=== PATIENT | male | born 1965 | race African-American/Black ===

== ENCOUNTER 2024-10-01 01:31 | Day surgery (SDC) | payer OTHER, SELFPAY ==
[2024-09-30 13:44] VITALS: BMI 29.6
[2024-10-01 10:04] VITALS: BP 151/92; PULSE 75; RESP 18; TEMP 36.5; O2SAT 100
[2024-10-01 10:16] LABS: Glucose Point of Care 58 mg/dl (65-105)
[2024-10-01] MEDS: DEXTROSE 50% 25 GM/50 ML SYRINGE IV PUSH (10:24)
--- NOTE | 2024-10-01 10:40 | P.PNAN_ITS ---
Anes - Initial Pre Proc Eval Procedure: Operation Date: 10/01/24 09:00 Proposed Procedures p Colonoscopy - Frederick Galdamez MD Date/Time: 10/01/24 10:40 Surgeon: Frederick Galdamez MD Pre Op Diagnosis: fecal abnormalities Patient Data Age: 59 Gender: M Height: 1.75 m Weight: 91 kg Last Vital Signs Temp 36.5 C 10/01/24 10:04 Pulse 75 10/01/24 10:04 Resp 18 10/01/24 10:04 BP 151/92 H 10/01/24 10:04 Pulse Ox 100 10/01/24 10:04 O2 Del Method Room Air 10/01/24 10:04 Allergies Allergy/AdvReac Type Severity Reaction Status Date / Time No Known Allergies Allergy Verified 10/01/24 09:50 Home Medications ?Medication ?Instructions ?Recorded ?Confirmed ?Type NPH INSULIN 26 unit subcut QPM 09/30/24 10/01/24 History aspirin 81 mg tablet,delayed 81 mg PO DAILY 09/30/24 10/01/24 History release (Adult Aspirin Regimen) chlorpheniramine maleate 4 mg 4 mg PO .COMPLEX PRN allergy 09/30/24 10/01/24 History tablet (Allergy (chlorpheniramine)) symptoms chlorthalidone 25 mg tablet 25 mg PO DAILY 09/30/24 10/01/24 History duloxetine 60 mg capsule,delayed 60 mg PO DAILY 09/30/24 10/01/24 History release glipizide 5 mg tablet 2.5 mg PO DAILY 09/30/24 10/01/24 History hydrocortisone 0.5 % topical 1 applic topical DAILY PRN itching 09/30/24 10/01/24 History ointment ibuprofen 600 mg tablet 600 mg PO BID PRN fever or pain 09/30/24 10/01/24 History insulin NPH 24 unit subcut QAM 09/30/24 10/01/24 History insulin regular human 100 unit/mL 4 unit subcut QAM 09/30/24 10/01/24 History (3 mL) subcutaneous pen lisinopril 40 mg tablet 40 mg PO DAILY 09/30/24 10/01/24 History metformin 1,000 mg tablet 1,000 mg PO BID 09/30/24 10/01/24 History naproxen 500 mg tablet 500 mg PO BID PRN pain 09/30/24 10/01/24 History psyllium 1 tbsp PO DAILY 09/30/24 10/01/24 History rosuvastatin 20 mg tablet 40 mg PO DAILY 09/30/24 10/01/24 History semaglutide 0.25 mg or 0.5 mg (2 0.5 mg subcut WEEKLY 09/30/24 09/30/24 History mg/3 mL) subcutaneous pen injector simethicone 80 mg chewable tablet 80 mg PO DAILY PRN abdominal 09/30/24 09/30/24 History (Gas Relief (simethicone)) distention tolnaftate 1 % topical cream 1 applic topical .COMPLEX 09/30/24 09/30/24 History (Antifungal (tolnaftate)) Laboratory Tests 10/01/24 10:13 POC Capillary Glucose 58 L* mg/dl (65-105) Patient hx anesthesia problems: none Family hx anesthesia problems: none Results Review: All pre-operative results and documents have been reviewed as part of the pre- operative evaluation. FOR[facility]LY [facility], [facility] Social History Social History Living arrangements: incarcerated Anes - Eval Final PreProcedure Day of Procedure 10/01/24 10:40 Patient weight: overweight Heart: regular rate and rhythm Lungs: clear to auscultation Airway: Mallampati scale class II Neurological: alert and oriented Last oral intake: >/= 8 hours ASA classification: III Emergent: no Anesthetic plan: proceed Anesthesia type and monitoring: general GIVS and standard monitoring Results Review: All pre-operative results and documents have been reviewed as part of the pre- operative evaluation. Informed Consent: The patient's anesthetic plan and its attendant risks and benefits were discussed with the patient/family/POA. Questions were solicited and answers provided to the satisfaction of the patient/family/POA.
--- NOTE | 2024-10-01 10:42 | PM.HPGS ---
History of Present Illness History of Present Illness Consent: Risks, benefits, and alternatives have been discussed and questions answered. Patient agrees to proceed with procedure. Chief complaint: fecal abnormalities Narrative: Eulalio Lucero is a 59 year old male here for first colonoscopy, + FIT (he is an inmate) Review of Systems Review of Systems: All systems reviewed & are unremarkable except as noted in HPI and below PMFSH Past Medical History Medical History (Updated 10/01/24 @ 10:43 by Frederick Galdamez MD) Positive FIT (fecal immunochemical test) Social History Social History Living arrangements: incarcerated Meds Home Medications and Allergies Home Medications ?Medication ?Instructions ?Recorded ?Confirmed ?Type NPH INSULIN 26 unit subcut QPM 09/30/24 10/01/24 History aspirin 81 mg tablet,delayed 81 mg PO DAILY 09/30/24 10/01/24 History release (Adult Aspirin Regimen) chlorpheniramine maleate 4 mg 4 mg PO .COMPLEX PRN allergy 09/30/24 10/01/24 History tablet (Allergy (chlorpheniramine)) symptoms chlorthalidone 25 mg tablet 25 mg PO DAILY 09/30/24 10/01/24 History duloxetine 60 mg capsule,delayed 60 mg PO DAILY 09/30/24 10/01/24 History release glipizide 5 mg tablet 2.5 mg PO DAILY 09/30/24 10/01/24 History hydrocortisone 0.5 % topical 1 applic topical DAILY PRN itching 09/30/24 10/01/24 History ointment ibuprofen 600 mg tablet 600 mg PO BID PRN fever or pain 09/30/24 10/01/24 History insulin NPH 24 unit subcut QAM 09/30/24 10/01/24 History insulin regular human 100 unit/mL 4 unit subcut QAM 09/30/24 10/01/24 History (3 mL) subcutaneous pen lisinopril 40 mg tablet 40 mg PO DAILY 09/30/24 10/01/24 History metformin 1,000 mg tablet 1,000 mg PO BID 09/30/24 10/01/24 History naproxen 500 mg tablet 500 mg PO BID PRN pain 09/30/24 10/01/24 History psyllium 1 tbsp PO DAILY 09/30/24 10/01/24 History rosuvastatin 20 mg tablet 40 mg PO DAILY 09/30/24 10/01/24 History semaglutide 0.25 mg or 0.5 mg (2 0.5 mg subcut WEEKLY 09/30/24 09/30/24 History mg/3 mL) subcutaneous pen injector simethicone 80 mg chewable tablet 80 mg PO DAILY PRN abdominal 09/30/24 09/30/24 History (Gas Relief (simethicone)) distention tolnaftate 1 % topical cream 1 applic topical .COMPLEX 09/30/24 09/30/24 History (Antifungal (tolnaftate)) Allergies Allergy/AdvReac Type Severity Reaction Status Date / Time No Known Allergies Allergy Verified 10/01/24 09:50 Vital Signs Vital Signs - 24 hr 10/01/24 10:04 Temperature 97.7 F Pulse Rate 75 Respiratory Rate 18 Blood Pressure 151/92 H Pulse Oximetry 100 Oxygen Delivery Room Air Exam Const: General: comfortable and no acute distress HENMT: Face/Nose/Sinus: Normal nares present Eyes: General: appearance normal, both eyes and all related structures Neck: Neck: no JVD Resp: Auscultation: clear to auscultation bilaterally Cardio: Rate: regular rate Rhythm: regular rhythm GI: Inspection: non-distended GI Palp: Yes Soft to palpation Skin: General skin exam: normal color Neuro: Speech: normal speech Extrem: General: normal to inspection Psych: Mental Status: mental status grossly normal Assessment and Plan Assessment and plan (1) Positive FIT (fecal immunochemical test): Code(s): R19.5 - Other fecal abnormalities Status: Acute Assessment and Plan: colonoscopy
[2024-10-01 10:45] LABS: Glucose Point of Care 82 mg/dl (65-105)
[2024-10-01] MEDS: LACTATED RINGERS 1,000 ML 150 ML IV CONT (11:05)
[2024-10-01 11:07] VITALS: BP 120/78; PULSE 80; RESP 18; O2SAT 99
[2024-10-01 11:17] VITALS: BP 125/84; PULSE 74; RESP 17; O2SAT 98
[2024-10-01 11:18] LABS: Glucose Point of Care 113 mg/dl (65-105)
[2024-10-01 11:27] VITALS: BP 149/97; PULSE 66; RESP 15; O2SAT 100
== END 2024-10-01 11:37 | disposition home or self-care (01) ==
PROVIDERS: Visit Provider Internal Medicine Gastroenterology
PROC: 0DJD8ZZ Inspection of Lower Intestinal Tract, Via Natural or Artificial Opening Endoscopic (ICD-10-PCS; CPT 45378; principal; 2024-10-01 09:00)
DX: R19.5 Other fecal abnormalities (principal); K64.8 Other hemorrhoids; Z79.82 Long term (current) use of aspirin; Z79.84 Long term (current) use of oral hypoglycemic drugs; Z79.4 Long term (current) use of insulin; Z79.85 Long-term (current) use of injectable non-insulin antidiabetic drugs
CPT/HCPCS: 45378; 82948; J2003; J2704; J7120

== ENCOUNTER 2024-12-30 10:09 | Outpatient (CLI) | payer OTHER, SELFPAY ==
--- NOTE | ~2024-12-30 | MR_ITS ---
MRI of the abdomen: Clinical indication: Liver mass. Technique: Axial in and out of phase T1, axial T2-weighted and fat-suppressed T2 weighted sequences w ere obtained through the abdomen. Coronal T2-weighted images were performed. Following intravenous ad ministration of 19 cc MultiHance gadolinium, T1-weighted fat-sat imaging was performed in the axial a nd coronal planes. Findings: Gallbladder unremarkable. The common bile duct is normal in course and caliber. No filling defects are seen within the CBD. No evidence of intrahepatic biliary ductal dilatation. The pancreati c duct is normal in size. There is a 2.6 x 2.2 cm T2 hyperintense mass in the central liver with discontinuous peripheral nodul ar enhancement and progressive fill in over time, compatible with hemangioma. Spleen, pancreas, adrenals, kidneys appear normal. The aorta and the paraaortic regions appear normal . Impression: 2.6 x 2.2 cm hepatic hemangioma, as detailed above. Reviewed, dictated and finalized at [facility]. Impression: 2.6 x 2.2 cm hepatic hemangioma, as detailed above.
== END 2024-12-30 10:10 | disposition home or self-care (01) ==
PROVIDERS: Visit Provider Physician Assistant
DX: K76.9 Liver disease, unspecified (principal)
CPT/HCPCS: 74183; A9577